=== PATIENT | female | born 1965 | race Two or more races ===

== ENCOUNTER 2018-01-30 13:14 | Emergency (ER) | payer OTHER ==
[~2018-01-30] VITALS: Ht 170.2 cm; Wt 66.7 kg
== END 2018-01-30 16:05 | disposition home or self-care (01) ==
LOC: ER 13:14
DX: L30.8 Other specified dermatitis (principal); B33.8 Other specified viral diseases; R23.8 Other skin changes

== ENCOUNTER 2019-10-15 09:57 | Emergency (ER) | payer OTHER ==
[~2019-10-15] VITALS: Ht 170.2 cm; Wt 66.7 kg
== END 2019-10-15 13:19 | disposition home or self-care (01) ==
LOC: ER 09:57
DX: B34.9 Viral infection, unspecified (principal); Z03.818 Encounter for observation for suspected exposure to other biological agents ruled out

== ENCOUNTER 2021-03-23 10:34 | Emergency (ER) | payer OTHER ==
[~2021-03-23] VITALS: Ht 170.2 cm; Wt 66.7 kg
== END 2021-03-23 13:32 | disposition home or self-care (01) ==
LOC: ER 10:34
DX: B34.9 Viral infection, unspecified (principal)

== ENCOUNTER 2024-03-17 20:09 | Emergency (ER) | payer OTHER ==
[~2024-03-17] VITALS: Ht 170.2 cm; Wt 63.5 kg
[2024-03-17] MEDS ORDERED: KETOROLAC TROMETHAMINE 60 MG VIAL IM ONE (21:00)
== END 2024-03-18 00:03 | disposition home or self-care (01) ==
LOC: ER 20:09
DX: S01.521A Laceration with foreign body of lip, initial encounter (principal); W18.39XA Other fall on same level, initial encounter; Y93.89 Activity, other specified; Y92.89 Other specified places as the place of occurrence of the external cause

== ENCOUNTER 2025-02-03 16:27 | Emergency (ER) | payer OTHER ==
[~2025-02-03] VITALS: Ht 170.2 cm; Wt 63.5 kg
[2025-02-03] MEDS ORDERED: DEXAMETHASONE SODIUM PHOSP/PF 10 MG/ML VIAL IV ONE (17:00)
[2025-02-03] MEDS ORDERED: DEXAMETHASONE SODIUM PHOSPHATE 4 MG/ML VIAL ONE (17:51)
[2025-02-03 18:31] LABS: BASO % 0.5 % (0.1-1.2); EOS # 0.37 (0.04-0.54); EOS % 5.0 % (0.7-7.0); LYMPH # 1.81 (1.18-3.74); LYMPH % 24.6 % (19.3-53.1); MEAN PLATELET VOLUME 9.50 fl (9.4-12.4); MONO # 0.72 (0.24-0.82); MONO % 9.8 % (4.7-12.5); NEUT # 4.41 (1.56-6.13); NEUT % 59.8 % (34.0-71.1); RED CELL DISTRIBUTION WIDTH 12.8 % (11.6-14.4)
== END 2025-02-03 19:35 | disposition home or self-care (01) ==
LOC: ER 16:27
PROVIDERS: General Practice
DX: R22.31 Localized swelling, mass and lump, right upper limb (principal)